=== PATIENT | female | born 1950 | race Caucasian/White ===

== ENCOUNTER 2021-05-26 21:10 | Emergency (ER) | payer MEDICARE, OTHER ==
[~2021-05-26] VITALS: Ht 154.9 cm; Wt 86.2 kg
[~2021-05-26 21:10] MED LIST: BACTRIM DS TAB1 EACH PO; CIPRO; PROTONIX40 MG PO
[2021-05-26] MEDS ORDERED: HYDROCODON-ACE1 EAC8 PO (23:08)
[2021-05-26] MEDS ORDERED: MEDROLDOSEPACK PO (23:09)
[2021-05-26 23:20] VITALS: BP 140/80
== END 2021-05-26 23:21 | disposition home or self-care (01) ==
LOC: M.ERS 21:10
DX: M25.561 Pain in right knee (principal); L29.9 Pruritus, unspecified